=== PATIENT | female | born 1975 | race Caucasian/White ===

== ENCOUNTER 2018-04-19 07:26 | Day surgery (SDC) | payer OTHER ==
[2018-04-11 14:48] LABS: BASOPHILS % (AUTO) 0.5 % (0-1); EOSINOPHILS # (AUTO) 0.1 X10'3 (0-0.9); EOSINOPHILS % (AUTO) 2.1 % (0-6); LYMPHOCYTES # (AUTO) 1.9 X10'3 (1.1-4.8); LYMPHOCYTES % (AUTO) 31.9 % (21-51); MEAN CORPUSCULAR HGB CONC 34.5 % (33.0-36.5); MEAN CORPUSCULAR VOLUME 92.7 FL (78-98); MEAN PLATELET VOLUME 6.9 FL (7.4-10.4); MONOCYTES # (AUTO) 0.6 X10'3 (0-0.9); MONOCYTES % (AUTO) 10.6 % (2-12); NEUTROPHILS # (AUTO) 3.3 X10'3 (1.8-7.7); NEUTROPHILS % (AUTO) 54.9 % (42-75); PRE OP HEMATOCRIT 37.4 % (35.0-45.0); PRE OP HEMOGLOBIN 12.9 g/dL (12.0-16.0); PRE OP PLATELET COUNT 322 X10'3 (140-440); RED BLOOD COUNT 4.04 X10'6 (4.20-5.60); RED CELL DISTRIBUTION WIDTH 12.8 % (11.5-14.5)
[2018-04-11 15:11] LABS: ALBUMIN 3.7 G/DL (3.4-5.0); ALBUMIN/GLOBULIN RATIO 0.9 (1.1-1.5); ALKALINE PHOSPHATASE 104 IU/L (46-116); BLOOD UREA NITROGEN 18 MG/DL (7-18); BUN/CREATININE RATIO 21.7 (6.6-38.0); CALCIUM 9.1 MG/DL (8.5-10.1); CHLORIDE 105 MMOL/L (99-107); CREATININE 0.83 MG/DL (0.40-0.90); PRE OP ALT 29 U/L (30-65); PRE OP ANION GAP 8 (8-16); PRE OP AST 22 U/L (10-37); PRE OP BILIRUB, TOTAL 0.3 MG/DL (0.0-1.0); PRE OP GLUCOSE 88 MG/DL (70-104); PRE OP POTASSIUM 3.7 MMOL/L (3.4-5.1); PRE OP SODIUM 143 MMOL/L (135-145); TOTAL CARBON DIOXIDE 30.2 MMOL/L (24-32); TOTAL PROTEIN 7.6 G/DL (6.4-8.2); eGFR 75 ML/MIN
[2018-04-19] VITALS (8 sets, daily range): BP systolic 106–142; BP diastolic 70–84
[~2018-04-19] VITALS: Ht 157.5 cm; Wt 89.9 kg
[~2018-04-19 07:26] MED LIST: AMLO5TAB16 PO; ATEN25TA2 PO; BUPIVAcaine/PF 2.5mg/ml (0.25%) 10ml vial ONE; BUPR150T6 PO; BUSP15TA3 PO; CETI-102 PO; DICL100G15 TOP; DOCUMENT DATE & TIME OF BETA-BLOCKER PO ONE; FLUT16SP26; GUAI600T45 PO; MELO-102 PO; META800T87 PO; MONT10TA24 PO; famotidine 20mg tablet PO ONE; ringers solution, lacted 1,000 ML IV SCH; triamcinolone acetonide 40mg/ml inj ONE
[2018-04-19] MEDS ORDERED: vancomycin/NS 1 GM ADD-VANTAGE 250 ML X 1 DOSE IV ONE (07:40)
[2018-04-19] MEDS ORDERED: cefazolin/dext.iso 2gm/100ml 100 ML IV ONE (07:45)
[2018-04-19] MEDS ORDERED: cloNIDine hcl/PF 100mcg/ml inj ONE (08:53)
[2018-04-19] MEDS ORDERED: sevoflurane 250ml liquid IH ONE (08:54)
[2018-04-19] MEDS ORDERED: ROPIVAcaine 0.5% (5mg/ml) 30ml vial ONE (08:54)
[2018-04-19] MEDS ORDERED: midazolam 2 mg/2 ml injection ONE ×2 (08:55→08:56)
[2018-04-19] MEDS ORDERED: fentaNYL/PF 50MCG/1 ML 2ML syringe ONE ×2 (08:55→10:21)
[2018-04-19] MEDS ORDERED: dexamethasone sod phosphate 4mg/ml inj. ONE (09:26)
[2018-04-19] MEDS ORDERED: propofol inj 20 ML IV ONE (09:26)
[2018-04-19] MEDS ORDERED: LIDOcaine 1%/PF 5ML 10 MG/ML VIAL ONE (09:26)
[2018-04-19] MEDS ORDERED: ringers solution, lacted 1,000 ML IV SCH (10:21)
[2018-04-19] MEDS ORDERED: morphine 4 MG/ML inj SYRINge IV PRN ×2 (10:25)
[2018-04-19] MEDS ORDERED: proCHLORperazine 10 MG/2 ml inj IV PRN (10:25)
[2018-04-19] MEDS ORDERED: ondansetron/PF 4mg/2ml inj IV PRN (10:25)
[2018-04-19] MEDS ORDERED: meperidine/PF 25mg/ml syringe IV PRN ×3 (10:25)
[2018-04-19] MEDS ORDERED: ePHEDrine 50MG/ML INJ. ONE (10:26)
[2018-04-19] MEDS ORDERED: ondansetron/PF 4mg/2ml inj ONE (10:43)
== END 2018-04-19 12:18 | disposition home or self-care (01) ==
LOC: PAS 07:26
PROVIDERS: ATTEND Orthopaedic Surgery
DX: M75.42 Impingement syndrome of left shoulder (principal); M23.222 Derangement of posterior horn of medial meniscus due to old tear or injury, left knee; M23.262 Derangement of other lateral meniscus due to old tear or injury, left knee; M22.42 Chondromalacia patellae, left knee; M94.212 Chondromalacia, left shoulder; M65.812 Other synovitis and tenosynovitis, left shoulder; M75.52 Bursitis of left shoulder; M19.012 Primary osteoarthritis, left shoulder; M17.12 Unilateral primary osteoarthritis, left knee; I10 Essential (primary) hypertension; M25.862 Other specified joint disorders, left knee; M25.812 Other specified joint disorders, left shoulder; F41.8 Other specified anxiety disorders; E66.01 Morbid (severe) obesity due to excess calories; F32.89 Other specified depressive episodes; J45.998 Other asthma; Z68.36 Body mass index [BMI] 36.0-36.9, adult; Z79.891 Long term (current) use of opiate analgesic; Z79.1 Long term (current) use of non-steroidal anti-inflammatories (NSAID); Z79.2 Long term (current) use of antibiotics; Z79.899 Other long term (current) drug therapy; Z98.890 Other specified postprocedural states
CPT/HCPCS: 29821; 29823; 29824; 29826; 29873; 29879; 29880; 36415; 80053; 85025; 93005; A6449; J0690; J0735; J1100; J2001; J2250; J2405; J2704; J2795; J3010; J3301; J3370; J3490; J7030; J7120; A6250; A7000